=== PATIENT | male | born 1985 | race Caucasian/White ===

== ENCOUNTER 2017-11-26 18:44 | Emergency (ER) | payer OTHER ==
[2017-11-26] MEDS ORDERED: BUFFERED LIDOCAINE 10 ML SYRINGE SUBQ STA (19:03)
--- NOTE | 2017-11-26 19:05 | ED Physician Documentation ---
PD HPI SKIN - Stated complaint Stated Complaint: L FINGER ABCESS - History obtained from History obtained from: Patient - History of Present Illness Timing - onset: Other (About 4 days of increasing swelling of the left index finger with redness. He went to an urgent care yesterday and was placed on doxycycline. No fevers.) Review of Systems Constitutional: denies: Fever, Chills Cardiac: reports: Reviewed and negative Respiratory: reports: Reviewed and negative GI: reports: Reviewed and negative PD PAST MEDICAL HISTORY - Past Medical History Cardiovascular: Hypertension - Present Medications Home Medications: Ambulatory Orders Medication Instructions Recorded Confirmed HYDROcod/ACETAM 5/325 [[place] 5/325] 1 - 2 ea PO Q6H PRN #15 tablet 11/26/17 Sulfamethoxazole/Trimethoprim 1 each PO BID 10 Days tablet 11/26/17 [Sulfamethoxazole-Tmp Ds Tablet] - Allergies Allergies/Adverse Reactions: Allergies Allergy/AdvReac Type Severity Reaction Status Date / Time No Known Drug Allergies Allergy Verified 11/26/17 19:12 - Social History Does the pt smoke?: Yes PD ED PE NORMAL - Vitals Vital signs reviewed: Yes - General General: Alert and oriented X 3, No acute distress - Extremities Extremities: Other (He has a pretty significant felon of the tip of the left index finger with kind of an ulcer on the radial side but no purulent drainage immediately.) - Neuro Neuro: Alert and oriented X 3, Normal speech Results - Vitals Vitals: Vital Signs - 24 hr 11/26/17 19:11 Temperature 37.0 C Heart Rate 92 Respiratory 16 Rate Blood Pressure 153/91 H O2 Saturation 99 Oxygen O2 Source Room air - Labs Labs: Laboratory Tests 11/26/17 20:02 POC Whole Bld Glucose 99 PD MEDICAL DECISION MAKING - Sepsis Event Vital Signs: Vital Signs - 24 hr 11/26/17 19:11 Temperature 37.0 C Heart Rate 92 Respiratory 16 Rate Blood Pressure 153/91 H O2 Saturation 99 Oxygen O2 Source Room air Departure - Departure Disposition: 01 Home, Self Care Clinical Impression: Felon of finger of left hand Condition: Good Record reviewed to determine appropriate education?: Yes Prescriptions: HYDROcod/ACETAM 5/325 [[place] 5/325] 1 - 2 ea PO Q6H PRN #15 tablet PRN Reason: Pain Sulfamethoxazole/Trimethoprim [Sulfamethoxazole-Tmp Ds Tablet] 1 each PO BID 10 Days tablet Comments: Come and see me on Thursday afternoon for wound recheck. Keep the dressing on until then. Return sooner if worse or if running a fever or if pain is uncontrolled. Your blood pressure was elevated today on check into the emergency department. This does not mean that you have hypertension, it is a common phenomenon to come to the emergency department and have elevated blood pressure. I recommend that you see your primary care physician within the week to have it rechecked when you are feeling better. Forms: Activity restrictions Discharge Date/Time: 11/26/17 20:03
[2017-11-26 19:13] VITALS: BP 153/91
[2017-11-26] MEDS ORDERED: SULFAMETH/TRIMETH DS 800/160 MG TABLET PO STA (19:53)
[2017-11-26] MEDS ORDERED: HYDROcod/ACET 5/325 Prepack 4 PO STA (19:53)
== END 2017-11-26 20:03 | disposition home or self-care (01) ==
LOC: ED 18:44
DX: L03.012 Cellulitis of left finger (principal); I10 Essential (primary) hypertension; F17.200 Nicotine dependence, unspecified, uncomplicated
CPT/HCPCS: 96372; 99282; 99283; A9270

== ENCOUNTER 2017-11-28 10:39 | Emergency (ER) | payer OTHER ==
[2017-11-28 10:55] VITALS: BP 136/95
--- NOTE | 2017-11-28 11:40 | ED Physician Documentation ---
PD HPI WOUND RECHECK - Stated complaint Stated Complaint: WOUND CHECK - Chief complaint Chief Complaint: Wound - Histroy obtained from History obtained from: Patient - History of Present Illness Location: Left Uppper Extremity Timing - onset: How many days ago (5) Associated symptoms: Redness, Swelling, Drainage Similar symptoms before: Has not had sx before Recently seen: Emergency Dept - Additional information Additional information: 31 y/o male developed some swelling to the left index finger about a week ago was seen at an urgent care and placed on doxy and subsequently was seen here had I&D done with drainage and placement of packing and he was started on bactrim. He is here today for wound followup and he feels symptoms are improving. He had symptoms into the forearm previously and now the symptoms are confined to the finger itself. He did not see a FB and denies being pricked by a thorn or knowing of a sliver. PD PAST MEDICAL HISTORY - Past Medical History Past Medical History: Yes Cardiovascular: Hypertension - Present Medications Home Medications: Ambulatory Orders Medication Instructions Recorded Confirmed HYDROcod/ACETAM 5/325 [[place] 5/325] 1 - 2 ea PO Q6H PRN #15 tablet 11/26/17 Sulfamethoxazole/Trimethoprim 1 each PO BID 10 Days tablet 11/26/17 [Sulfamethoxazole-Tmp Ds Tablet] - Allergies Allergies/Adverse Reactions: Allergies Allergy/AdvReac Type Severity Reaction Status Date / Time No Known Drug Allergies Allergy Verified 11/26/17 19:12 - Social History Does the pt smoke?: Yes Smoking Status: Current every day smoker PD ED PE NORMAL - Vitals Vital signs reviewed: Yes (hypertensive ) - General General: Alert and oriented X 3, No acute distress, Well developed/nourished - HEENT HEENT: Atraumatic, PERRL - Respiratory Respiratory: No respiratory distress - Derm Derm: Normal color, Warm and dry, No rash - Extremities Extremities: Other (The tip of the left index finger appears macerated and the packing is removed without much drainage on it. The area does not appear fluctuant and there is no swelling or tenderenss proximally. ) - Neuro Neuro: Alert and oriented X 3, No motor deficit, No sensory deficit, Normal speech Eye Opening: Spontaneous Motor: Obeys Commands Verbal: Oriented GCS Score: 15 - Psych Psych: Normal mood, Normal affect Results - Vitals Vitals: Vital Signs - 24 hr 11/28/17 10:52 Temperature 36.4 C L Heart Rate 68 Respiratory 18 Rate Blood Pressure 136/95 H O2 Saturation 98 Oxygen O2 Source Room air PD MEDICAL DECISION MAKING - ED course Complexity details: reviewed old records, considered differential, d/w patient ED course: 31 y/o male with a recently drained felon appears to be slowly healing. The dressing is left off and the macerated appearance of the finger tip improves. We will continue antibiotic and expect improvement. He will return for any worsening. We did discuss possible FB and will follow up as needed. - Sepsis Event Vital Signs: Vital Signs - 24 hr 11/28/17 10:52 Temperature 36.4 C L Heart Rate 68 Respiratory 18 Rate Blood Pressure 136/95 H O2 Saturation 98 Oxygen O2 Source Room air Departure - Departure Disposition: 01 Home, Self Care Clinical Impression: Felon of finger of left hand Condition: Stable Instructions: ED Staph Infec Abx Tx Only Follow-Up: Rosetta Waller PA-C [Provider Admit Priv/Credential] - Discharge Date/Time: 11/28/17 12:19
== END 2017-11-28 12:19 | disposition home or self-care (01) ==
LOC: ED 10:39
DX: Z48.00 Encounter for change or removal of nonsurgical wound dressing (principal); L03.012 Cellulitis of left finger; I10 Essential (primary) hypertension; F17.200 Nicotine dependence, unspecified, uncomplicated
CPT/HCPCS: 99282